=== PATIENT | female | born 1980 | race African-American/Black ===

== ENCOUNTER 2019-05-29 17:22 | Emergency (ER) | payer MEDICAID ==
[~2019-05-29] VITALS: Ht 162.6 cm; Wt 68.0 kg
[~2019-05-29 17:22] MED LIST: DICY10CA59 PO; ONDA4TAB21 PO; QUET100T PO
[2019-05-29 17:28] VITALS: BP 123/79
== END 2019-05-29 23:43 | disposition home or self-care (01) ==
LOC: ER 17:22
DX: R44.0 Auditory hallucinations (principal); F15.10 Other stimulant abuse, uncomplicated; Z90.710 Acquired absence of both cervix and uterus; Z79.899 Other long term (current) drug therapy; Z87.19 Personal history of other diseases of the digestive system
CPT/HCPCS: 99283